=== PATIENT | male | born 2005 | race Caucasian/White ===

== ENCOUNTER 2025-06-23 08:49 | Outpatient (AMB) | payer OTHER, SELFPAY ==
--- OUTSIDE RECORDS SUMMARY | 2025-05-18 13:00 | XMS_ITS | Encounter Summary ---
Author Organization [employer] Address [address] [place] [address] Care Team Providers Care Gamma Operator Name Role Phone Pavithra Álvarez MD Primary Care Provide r Encounter Details Date Type Department Care Team ([facility] st Contact Info) Description 05/18/2025 2:00 PM EDT Office Visit [facility] MED[facility]INE [address] [place], [place] [phone] Pavithra Álvarez MD [address] [place] [address] Class 1 obesity due to excess calories with serious comorbidity and body mass index (BMI) of 30.0 to 30.9 in adult (Primary Dx); Nonintractable epilepsy without status epilepticus, unspecified epilepsy type (CMS/HCC) (HCC); Encounter for immunization; Dietary counseling; Exercise counseling Social History Tobacco Use Types Packs/Day Years Used Date Smoking Tobacco: Never Smokeless Tobacco: Never Alcohol Use Standard Drinks/Week Comments Yes 0 (1 standard drink = 0.6 oz pur e alcohol) rare Depression Answer Date Recorded Patient Health Questionnaire-9 Score 0 06/18/2025 Patient Health Questionnaire-9 Score 0 06/18/2025 Last PHQ-9: Questionnaire Data Not on file 1 08/18/2024 Housing Stability Answer Date Recorded What is your housing situation today? I have william fulton 05/08/[address] you li ve. Do you have problems with any of the following? None of the above 05/08/2025 Food Insecurity Answer Date Recorded Within the past 12 months, y ou worried that your food would run out before you got money to buy more: Never True 05/08/2025 Within the past 12 months,th e food you bought just didn't last and you didn't have enough money to get more: Never True Transportation Answer Date Recorded In the past 12 months, has l ack of transportation kept you from medical appts, meetings, work or from getting things needed for daily living? No 05/08/2025 Utilities Answer Date Recorded In the past 12 months, has t he electric, gas, oil or water company threatened to shut off services in your home? No 05/08/2025 Depression Answer Date Recorded Patient Health Questionnaire-2 Score 0 06/18/2025 Internet Access Answer Date Recorded Internet Access Q1 Yes 05/08/2025 Internet Access Q2 Not on file 05/08/2025 Sex and Gender Information Value Date Recorded Sex Assigned at Male 02/06/2025 10:23 AM EDT Legal Sex Male 10:21 AM EDT Gender Identity Male 02/06/2025 10:23 AM EDT Sexual Orientation Straight 03/13/2025 12 :47 PM EDT documented as of this encounter Last Filed Vital Signs Vital Sign Reading Time Taken Comments Blood Pressure 122/88 05/18/2025 2:08 PM EDT Pulse 52 05/18/2025 2:08 PM EDT Temperature 36.4 C (97.5 F) 05/18/2025 2:08 PM EDT Respiratory Rate 16 05/18/2025 2:08 PM EDT Oxygen Saturation 98% 05/18/2025 2:08 PM EDT Inhaled Oxygen Concentration - - Weight 95.3 kg (210 lb) 05/18/2025 2:08 PM EDT Height 177.8 cm (5' 10 ) 05/18/2025 2:08 PM EDT Body Mass Index 30.13 05/18/2025 2:08 PM EDT documented in this encounter Functional Status * Over the past 2 weeks, how often have you been bothered by any of the following problems? Question Answer Date of Assessment Author Patient Health Questionnaire-2 Score 0 01/2025 3:06 PM Jannette Minor [place] * Little interest or pleasure in doing things Answer Date of Assessment Author Not at all 06/18/2025 3:06 PM Huy Minor ra, [place] * Feeling down, depressed, or hopeless Answer Date of Assessment Author Not at all 06/18/2025 3:06 PM Huy Minor ra, [place] * Trouble falling or staying asleep, or sleeping too much Answer Date of Assessment Author Not at all 06/18/2025 3:06 PM Huy Minor ra, [place] * Feeling tired or having little energy Answer Date of Assessment Author Not at all 06/18/2025 3:06 PM Huy Minor ra, [place] * Poor appetite or overeating Answer Date of Assessment Author Not at all 06/18/2025 3:06 PM Edis Minor [place] * Feeling bad about yourself - or that you are a failure or have let yourself or your family down Answer Date of Assessment Author Not at all 06/18/2025 3:06 PM Huy Minor ra, [place] * Trouble concentrating on things, such as reading the newspaper or watching television Answer Date of Assessment Author Not at all 06/18/2025 3:06 PM Huy Minor ra, [place] * Moving or speaking so slowly that other people could have noticed? Or the opposite - being so fidgety or restless that you have been moving around a lot more than usual. Answer Date of Assessment Author Not at all 06/18/2025 3:06 PM Huy Minor ra, [place] * Thoughts that you would be better off or hurting yourself in some way Answer Date of Assessment Author Not at all 06/18/2025 3:06 PM Huy Minor ra, [place] * Patient Health Questionnaire-9 Score Answer Date of Assessment Author 0 06/18/2025 3:06 PM Huy Minor ra, [place] * Over the last 2 weeks, how often have you been bothered by any of the following problems? Question Answer Date of Assessment Author Feeling nervous, anxious, or on edge 0 01/2025 3:05 PM Jannette Minor MA Not being able to stop or co ntrol worrying 0 06/18/2025 3:05 PM Jannette Minor MA Worrying too much about diff erent things 0 06/18/2025 3:05 PM Jannette Minor MA Trouble relaxing 0 06/18/2025 3:05 PM Jannette Shaffer [place] Being so restless that it is hard to sit still 0 06/18/2025 3:05 PM Jannette Minor MA Becoming easily annoyed or irritable 0 01/2025 3:05 PM Jannette Minor MA Feeling afraid as if somethi ng awful might happen 0 06/18/2025 3:05 PM Jannette Minor MA CHADD-7 Total Score 0 06/18/2025 3:05 PM Jannette Minor MA documented as of this encounter Progress Notes * Pavithra Kinney MD - 05/18/2025 2:00 PM EDT SUBJECTIVE: Herrera Ramírez is a 19 y.o. year old male who presents for new patient . 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) Lives with:mother and sister - EtOH once a month always ;ess than 3 drinks - smoking cigarettes denies - recreational drug use smokes marijuana once a month Diet:regular Exercise: plays basketball almost every day Surgeries/Hospitalizations:left ankle surgery 2018 PMHx:epilepsy (patient has a neurologist he sees them at [facility]) FMHx:none Immunizations: Flu shot today Acute Concerns: None Social History Social History Narrative Not on file Problem List[1] Nonintractable epilepsy without status epilepticus (CMS/HCC) (HCC) Class 1 obesity due to excess calories with serious comorbidity and body mass index (BMI) of 30.0 to 30.9 in adult Family History[2] Review of Systems Constitutional: Negative. HENT: Negative. Respiratory: Negative. Cardiovascular: Negative. OBJECTIVE: Vitals: 05/18/25 1408 BP: 122/88 BP Location: Left arm Patient Position: Sitting BP Cuff Size: Adult Pulse: 52 Resp: 16 Temp: 97.5 ??F (36.4 ??C) TempSrc: Temporal SpO2: 98% Weight: 210 lb (95.3 kg) Height: 5' 10 (1.778 m) Physical Exam Constitutional: Appearance: Normal appearance. Cardiovascular: Rate and Rhythm: Normal rate and regular rhythm. Pulmonary: Effort: Pulmonary effort is normal. Breath sounds: Normal breath sounds. Abdominal: General: Abdomen is flat. Palpations: Abdomen is soft. Musculoskeletal: Right lower leg: No edema. Left lower leg: No edema. Neurological: Mental Status: He is alert. Follow Up: No follow-ups on file. Medications Ordered Prior to Encounter[3] Problem List Items Addressed This Visit Nonintractable epilepsy without status epilepticus (CMS/HCC) (HCC) Last cystoscopy was in 2022 we will continue with same Keppra dose and I advised also to follow-up with neurology Relevant Medications levETIRAcetam (Keppra) 1000 MG tablet Other Relevant Orders Hepatic Function Panel Class 1 obesity due to excess calories with serious comorbidity and body mass index (BMI) of 30.0 to 30.9 in adult - Primary Extensive counseling about healthy diet and exercise done today Blood work ordered today patient will be contacted with results Relevant Orders Hemoglobin A1c Lipid Panel, Standard Vitamin D, 25-Hydroxy, Total, Immunoassay TSH with Reflex to Free T4 Other Visit Diagnoses Encounter for immunization Relevant Orders FLU VACCINE TRIVALENT [id number] (Fluarix) 19 yrs + (Completed) Dietary counseling Exercise counseling [1] Patient Active Problem List Diagnosis Nonintractable epilepsy without status epilepticus (CMS/HCC) (HCC) Class 1 obesity due to excess calories with serious comorbidity and body mass index (BMI) of 30.0 to 30.9 in adult [2] No family history on file. [3] Current Outpatient Medications on File Prior to Visit Medication Sig Dispense Refill [DISCONTINUED] levETIRAcetam (Keppra) 1000 MG tablet Take 2 tablets (2,000 mg) by mouth 2 times daily. 120 tablet 2 No current facility-administered medications on file prior to visit. documented in this encounter Miscellaneous Notes * Assessment & Plan Note - Pavithra Kinney MD - 05/18/2025 4:23 PM EDT Associated Problem(s): Class 1 obesity due to excess calories with serious comorbidity and body mass index (BMI) of 30.0 to 30.9 in adult Extensive counseling about healthy diet and exercise done today Blood work ordered today patient will be contacted with results * Assessment & Plan Note - Pavithra Kinney MD - 05/18/2025 4:23 PM EDT Associated Problem(s): Nonintractable epilepsy without status epilepticus (CMS/HCC) (HCC) Last seizurevwas in 2022 we will continue with same Keppra dose and I advised also to follow-up with neurology documented in this encounter Plan of Treatment Not on file documented as of this encounter Procedures Procedure Name Priority Date/Time Associated Diagnosis Comments VITAMIN D,25-OH,TOTAL,IA Routine 05/18/2025 3:02 PM EDT Class 1 obesity due to excess calories with serious comorbidity and body mass index (BMI) of 30.0 to 30.9 in adult TSH W/REFLEX TO FT4 Routine 05/18/2025 3 :02 PM EDT Class 1 obesity due to excess calories with serious comorbidity and body mass index (BMI) of 30.0 to 30.9 in adult HEMOGLOBIN A1C Routine 05/18/2025 3:02 PM EDT Class 1 obesity due to excess calories with serious comorbidity and body mass index (BMI) of 30.0 to 30.9 in adult HEPATIC FUNCTION PANEL Routine 05/18/2025 3:02 PM EDT Nonintractable epilepsy without status epilepticus, unspecified epilepsy type (CMS/HCC) (HCC) LIPID PANEL, STANDARD Routine 05/18/2025 3:02 PM EDT Class 1 obesity due to excess calories with serious comorbidity and body mass index (BMI) of 30.0 to 30.9 in adult documented in this encounter Results * TSH with Reflex to Free T4 (05/18/2025 3:02 PM EDT) TSH reflex Free T4 1.71 0.32 - 4.0 uIU/mL [facility] Blood Venous blood specimen / Unknown 05/18/2025 3:02 PM EDT 05/18/2025 4:03 PM EDT us Pavithra Kinney MD LAB BLOOD ORDERABLES Final Result Performing Organization Address City/[facility]/ZIP Co de Phone Number [facility] [address] [place] [phone] [phone] * Vitamin D, 25-Hydroxy, Total, Immunoassay (05/18/2025 3:02 PM EDT) Vitamin D 25-OH Total 58.0 >30 ng/mL [facility] Comment: Health Based Reference Values*< 20 ng/mL Oyspkdedh50-57 ng/mL Insufficient> 30 ng/mL Sufficient*Shell AMATO. N Engl J Med. 2007;357:266-280There is no well-established upper level of normal vitamin Dlevels. Some laboratories use 50 ng/mL as an upper limit ofnormal. However, toxicity is patient-dependent and may occurat any level. Careful correlation with the patient'spresentation is necessary and, if there is concern forvitamin D toxicity, treatment should be consideredirrespective of the serum level.Care must be taken in interpreting Vitamin D results fromdifferent laboratories and methodologies. Published datademonstrated that results from patients undergoinghemodialysis may show a negative bias when tested withvarious automated 25-OH vitamin D assays when compared toLC-MS/MS.When testing samples from patients whose predominant form ofVitamin D is Vitamin D2, such as patients receiving VitaminD2 supplementation, results that are subtherapeutic shouldbe confirmed with another method such as LC-MS/MS. Blood Venous blood specimen / Unknown 05/18/2025 3:02 PM EDT 05/18/2025 4:03 PM EDT Pavithra Kinney MD LAB BLOOD ORDERABLES Final Result [facility] [address] [place] [phone] * (ABNORMAL) Lipid Panel, Standard (05/18/2025 3:02 PM EDT) Triglycerides 87 <150 mg/dL [facility] Comment:Desirable Triglyceri de: less than 150 mg/dLBorderline High Triglyceride 150-199 mg/dLHigh Triglyceride: 200-499 mg/dLVery High Triglyceride: greater than or equal to 5OO mg/dL Cholesterol 114 <200 mg/dL [facility] Comment:Desirable Cholestero l: less than 200 mg/dLBorderline High Cholesterol: 200-239 mg/dLHigh Cholesterol: greater than 239 mg/dL LDL Cholesterol Calculated 64 <100 mg/dL [facility] Comment:Desirable LDL: less than 100 mg/dLNear Optimal/Above Optimal LDL: 110- 129 mg/dLBorderline High LDL: 130-159 mg/dLHigh LDL: 160-189 mg/dLVery High LDL: greater than or equal to 190 mg/dL HDL Cholesterol 33(L) >40 mg/dL [facility] Comment:Desirable HDL: great er than 40 mg/dL Note: This HDL assay may give artificially low results in patients with liver disease. Blood Venous blood specimen / Unknown 05/18/2025 3:02 PM EDT 05/18/2025 4:03 PM EDT Pavithra Kinney MD LAB BLOOD ORDERABLES Final Result [facility] [address] [place] [address] [phone] * Hemoglobin A1c (05/18/2025 3:02 PM EDT) Hemoglobin A1c 5.1 <6.0 % [facility] Comment:Hemoglobin A1C Refer ence Range Adults: 4.8 - 6.0 % Non diabetic: < 6.0 % Goal: < 7.0 %Additional Action Suggested: > 8.0 %Note: Hemoglobin A1c results are invalid for patients with abnormal amounts of HbF. Blood transfusions may impact the HbA1c concentration in the patient sample. Estimated Average Glucose 100 mg/dL [facility] Comment:eAG = Estimated ave rage glucose which is %A1C expressed asaverage glucose, using the formula of the [id number]-[id number] Glucose study (ADAG), Diabetes Care, Vol.31,#8,Mar. 2007 Blood Venous blood specimen / Unknown 05/18/2025 3:02 PM EDT 05/18/2025 4:00 PM EDT us Pavithra Kinney MD LAB BLOOD ORDERABLES Final Result Performing Organization Address [facility]/ZIP Co de Phone Number [facility] [address] [place] [phone] * (ABNORMAL) Hepatic Function Panel (05/18/2025 3:02 PM EDT) Bilirubin, Total 1.1(H) 0.0 - 1.0 mg/dL [facility] Bilirubin, Direct 0.4 0.0 - 0.5 mg/dL [facility] Aspartate Amino Transferase 33 5 - 37 U/L [facility] Alanine Aminotransferase 22 0 - 40 U/L [facility] Total Protein 7.5 6.5 - 8.0 g/dL [facility] Albumin Level 5.2(H) 3.5 - 5.0 g/dL [facility] Alkaline Phosphatase 70 39 - 117 U/L [facility] Blood Venous blood specimen / Unknown 05/18/2025 3:02 PM EDT 05/18/2025 4:03 PM EDT us Pavithra Kinney MD LAB BLOOD ORDERABLES Final Result Performing Organization Address [facility]/ZIP Co de Phone Number [facility] [address] [place] [phone] documented in this encounter Visit Diagnoses Diagnosis Class 1 obesity due to excess calories with serious comorbidity and body mass index (BMI) of 30.0 to 30.9 in adult- Primary Nonintractable epilepsy without status epilepticus, unspecified epilepsy type (CMS/HCC) (HCC) Encounter for immunization Dietary counseling Dietary surveillance and counseling Exercise counseling documented in this encounter Care Teams Gamma Operator Relationship Specialty Start Date End Date Pavithra Álvarez MD [address] [place] [phone] PCP - General Internal Medicine 05/18/25 documented as of this encounter
--- OUTSIDE RECORDS SUMMARY | 2025-06-18 15:15 | XMS_ITS | Encounter Summary ---
Author Organization [email or web address] Address [address] [place] [address] Care Team Providers Care Shell Sieve Operator Name Role Phone Pavithra Álvarez MD Primary Care Provide r Encounter Details Date Type Department Care Team (Late st Contact Info) Description 06/18/2025 3:15 PM EST Telemedicine [facility] MEDICINE [address] [place], [place] [phone] Pavithra Álvarez MD [address] [place] [address] Low HDL (under 40) (Primary Dx); Class 1 obesity due to excess calories with serious comorbidity and body mass index (BMI) of 30.0 to 30.9 in adult; Nonintractable epilepsy without status epilepticus, unspecified epilepsy type (CMS/HCC) (HCC) Social History Tobacco Use Types Packs/Day Years [...] PM EDT documented as of this encounter Functional Status * Over the [...] PM Huy Minor ra, [place] * Feeling bad about yourself - [...] Progress Notes * Pavithra Kinney MD - 06/18/2025 3:15 PM EST SUBJECTIVE: Herrera Ramírez is a 19 y.o. year old male who presents for Follow up . Today I reviewed blood work with patient and let him know it looks normal with exception of lipid panel he has mild decrease HDL Also was noticed he is not vaccinated against hepatitis B, vaccine was offered to him Patient tells me he is taking his Keppra as prescribed he has not had any seizure episodes Social History Social History Narrative Not on file Problem List[1] Nonintractable epilepsy without status epilepticus (CMS/HCC) (HCC) Class 1 obesity due to excess calories with serious comorbidity and body mass index (BMI) of 30.0 to 30.9 in adult Family History[2] Review of Systems Constitutional: Negative. HENT: Negative. Respiratory: Negative. Cardiovascular: Negative. Neurological: Negative. Follow Up: No follow-ups on file. Medications Ordered Prior to Encounter[3] Problem List Items Addressed This Visit Low HDL (under 40) - Primary Extensive counseling about healthy diet and exercise on today Class 1 obesity due to excess calories with serious comorbidity and body mass index (BMI) of 30.0 to 30.9 in adult Extensive counseling about healthy diet and exercise done today Nonintractable epilepsy without status epilepticus (CMS/HCC) (HCC) Continue with Keppra 1000 mg twice daily Patient was his neurology appointment I will print information and mail to him so he can reschedulehis appointment [1] Patient Active Problem List Diagnosis Nonintractable epilepsy without status epilepticus (CMS/HCC) (HCC) Class 1 obesity due to excess calories with serious comorbidity and body mass index (BMI) of 30.0 to 30.9 in adult Low HDL (under 40) [2] No family history on file. [3] Current Outpatient Medications on File Prior to Visit Medication Sig Dispense Refill levETIRAcetam (Keppra) 1000 MG tablet TAKE 2 TABLETS BY MOUTH 2 TIMES DAILY 120 tablet 0 [DISCONTINUED] levETIRAcetam (Keppra) 1000 MG tablet Take 2 tablets (2,000 mg) by mouth 2 times daily. 120 tablet 2 No current facility-administered medications on file prior to visit. documented in this encounter Miscellaneous Notes * Assessment & Plan Note - Pavithra Kinney MD - 06/18/2025 4:12 PM EST Associated Problem(s): Nonintractable epilepsy without status epilepticus (CMS/HCC) (HCC) Continue with Keppra 1000 mg twice daily Patient was his neurology appointment I will print information and mail to him so he can reschedulehis appointment * Assessment & Plan Note - Pavithra Kinney MD - 06/18/2025 4:11 PM EST Associated Problem(s): Class 1 obesity due to excess calories with serious comorbidity and body mass index (BMI) of 30.0 to 30.9 in adult Extensive counseling about healthy diet and exercise done today * Assessment & Plan Note - Pavithra Kinney MD - 06/18/2025 4:11 PM EST Associated Problem(s): Low HDL (under 40) Extensive counseling about healthy diet and exercise on today documented in this encounter Plan of Treatment Not on file documented as of this encounter Visit Diagnoses Diagnosis Low HDL (under 40)- Primary Class 1 obesity due to excess calories with serious comorbidity and body mass index (BMI) of 30.0 to 30.9 in adult Nonintractable epilepsy without status epilepticus, unspecified epilepsy type (CMS/HCC) (HCC) documented in this encounter Additional Health Concerns Assessment Noted Time PHQ-9 Depression Total Score: 0 06/18/20 25 3:06 PM EST documented as of this encounter Care Teams Shell Sieve Operator Relationship Specialty Start Date End Date Pavithra Álvarez MD [address] [place] [phone] PCP - General Internal Medicine 05/18/25 documented as of this encounter
--- OUTSIDE RECORDS SUMMARY | 2025-06-23 09:07 | XMS_ITS | Encounter Summary ---
Author Organization [employer] Address [address] [place] [address] Care Team Providers Care Thermal Surfacing Machine Operator Name Role Phone Pavithra Álvarez MD Primary Care Provide r Reason for Visit * Reason Onset Date Comments Results 05/18/2025 Encounter Details Date Type Department Care Team ([facility] st Contact Info) Description 05/18/2025 Results Follow-Up [facility] MED[facility]INE [address] [place] [address] Ramya Coronado, ANP [address] [place] [address] Basic Metabolic Panel, HIV-1/2 Antigen and Antibodies, Fourth Generation, with Reflexes, Hepatitis C Antibody with Reflex to HCV, RNA, Quantitative, Real-Time PCR, Additional followed-up results: 4 Social History Tobacco Use Types Packs/Day Years Used Date Smoking Tobacco: Never Smokeless Tobacco: Never Alcohol Use Standard Drinks/Week Comments Yes 0 (1 standard drink = 0.6 oz pur e alcohol) rare Housing Stability Answer Date Recorded What is [...] off services in your home? No 05/08/2025 Internet Access Answer Date Recorded Internet Access Q1 Yes 05/08/2025 Internet Access Q2 Not on file 05/08/2025 Sex and Gender Information Value Date Recorded Sex Assigned at Male 02/06/2025 10:23 AM EDT Legal Sex Male 10:21 AM EDT Gender Identity Male 02/06/2025 10:23 AM EDT Sexual Orientation Straight 03/13/2025 12 :47 PM EDT documented as of this encounter Miscellaneous Notes * Telephone Encounter - Lesly Wu RN - 05/20/2025 2:15 PM EDT ----- Message from Ramya Coronado sent at 05/20/2025 2:10 PM EDT ----- Please offer hep b vaccine series, not immune on labs. STI labs normal. ----- Message ----- From: Interface, Lab Results In Sent: 05/18/2025 4:37 PM EDT To: SHERRILL Gonzalez * Result Encounter Note - SHERRILL Gonzalez - 05/20/2025 2:10 PM EDT Please offer hep b vaccine series, not immune on labs. STI labs normal. documented in this encounter Plan of Treatment Not on file documented as of this encounter Visit Diagnoses Not on filedocumented in this encounter Care Teams Thermal Surfacing Machine Operator Relationship Specialty Start Date End Date Pavithra Álvarez MD [address] [place] [phone] PCP - General Internal Medicine 05/18/25 documented as of this encounter
--- OUTSIDE RECORDS SUMMARY | 2025-06-23 09:07 | XMS_ITS | Encounter Summary ---
Author Organization [employer] Address [address] [place] [address] Care Team Providers Care Telesales Representative Name Role Phone Pavithra Álvarez MD Primary Care Provide r Encounter Details Date Type Department Care Team (Latest Contact Info) Description 06/18/2025 Travel Social History Tobacco Use Types Packs/Day Years [...] [place] Trouble relaxing 0 06/18/2025 3:05 PM EST Jannette Shields [place] Being so restless that it is hard to sit still 0 06/18/2025 3:05 PM Jannette Minor MA Becoming easily annoyed or irritable 0 01/2025 3:05 PM Jannette Minor MA Feeling afraid as if somethi ng awful might happen 0 06/18/2025 3:05 PM Jannette Minor MA CHADD-7 Total Score 0 06/18/2025 3:05 PM Jannette Minor [place] documented as of this encounter Plan of Treatment Not on file documented as of this encounter Visit Diagnoses Not on filedocumented in this encounter Additional Health Concerns Assessment Noted Time PHQ-9 Depression Total Score: 0 06/18/20 3:06 PM EST documented as of this encounter Care Teams Telesales Representative Relationship Specialty Start Date End Date Pavithra Álvarez MD [address] [place] [phone] PCP - General Internal Medicine 05/18/25 documented as of this encounter
--- OUTSIDE RECORDS SUMMARY | 2025-06-23 09:07 | XMS_ITS | Clinical Summary ---
Author Organization [employer] Address [address] [place] [address] Care Team Providers Care Stamping Operator Name Role Phone Pavithra Álvarez MD Primary Care Provide r Allergies No known active allergies Medications levETIRAcetam (Keppra) 1000 MG tabletIndicatio ns:Nonintractab le epilepsy without status epilepticus, unspecified epilepsy type (CMS/HCC) (HCC) TAKE 2 TABLETS BY MOUTH 2 TIMES DAILY 120 tablet 5 Active levETIRAcetam (Keppra) 1000 MG tabletIndicatio ns:Nonintractab le epilepsy without status epilepticus, unspecified epilepsy type (CMS/HCC) (HCC) Take 2 tablets (2,000 mg) by mouth 2 times daily. 120 tablet 2 5 025 Discontinued Active Problems Problem Noted Date Diagnosed Date Low HDL (under 40) 06/18/2025 Assessment & Plan (06/18/2025 4:11 PM EST): Extensive counseling about healthy diet and exercise on today Class 1 obesity due to exces s calories with serious comorbidity and body mass index (BMI) of 30.0 to 30.9 in adult 05/18/2025 Assessment & Plan (06/18/2025 4:11 PM EST): Extensive counseling about healthy diet and exercise done today Assessment & Plan (05/18/2025 4:23 PM EDT): Extensive counseling about healthy diet and exercise done today Blood work ordered today patient will be contacted with results Nonintractable epilepsy with out status epilepticus (CMS/HCC) 03/13/2025 Assessment & Plan (06/18/2025 4:12 PM EST): Continue with Keppra 1000 mg twice daily Patient was his neurology appointment I will print information and mail to him so he can reschedule his appointment Assessment & Plan (06/18/2025 3:15 PM EST): Last seizurevwas in 2022 we will continue with same Keppra dose and I advised also to follow-up with neurology Encounters Date Type Department Care Team Description 06/18/2025 3:15 PM EST Telemedicine [facility] [address] [place] [phone] Pavithra Álvarez MD Low HDL (under 40) (Primary Dx); Class 1 obesity due to excess calories with serious comorbidity and body mass index (BMI) of 30.0 to 30.9 in adult; Nonintractable epilepsy without status epilepticus, unspecified epilepsy type (CMS/HCC) ([facility]) 06/18/2025 Travel 06/15/2025 Refill [facility] [address] [place] [phone] Ramya Coronado ANP Nonintractable epilepsy without status epilepticus, unspecified epilepsy type (CMS/HCC) ([facility]) 06/14/2025 Refill [facility] [address] [place] [phone] Ramya Coronado ANP Nonintractable epilepsy without status epilepticus, unspecified epilepsy type (CMS/HCC) ([facility]) 05/26/2025 Telephone [facility] [address] [place] [phone] Pavithra Álvarez MD No Show 05/18/2025 2:00 PM EDT Office Visit [facility] [address] [place] [phone] Pavithra Álvarez MD Class 1 obesity due to excess calories with serious comorbidity and body mass index (BMI) of 30.0 to 30.9 in adult (Primary Dx); Nonintractable epilepsy without status epilepticus, unspecified epilepsy type (CMS/HCC) (HCC); Encounter for immunization; Dietary counseling; Exercise counseling 05/18/2025 Results Follow-Up [facility] [address] [place] [phone] Ramya Coronado ANP Basic Metabolic Panel, HIV-1/2 Antigen and Antibodies, Fourth Generation, with Reflexes, Hepatitis C Antibody with Reflex to HCV, RNA, Quantitative, Real-Time PCR, Additional followed-up results: 4 05/18/2025 Travel 05/08/2025 Patient Outreach [facility] [address] [place] [address] Pavithra Álvarez MD Pre-visit Planning (SDOH screening negative and tobacco screening negative) from Last 3 Months Immunizations Immunization Administration Dates Next Due Influenza, seasonal, injectable, preservative fr ee 05/18/2025 Social History Tobacco Use Types Packs/Day Years [...] Orientation Straight 03/13/2025 12 :47 PM EDT Last Filed Vital Signs Vital Sign Reading [...] Mass Index 30.13 05/18/2025 2:08 PM EDT Plan of Treatment Health Maintenance Due Date Last Done Comments Chlamydia and Gonorrhea Screening 2003 Family Planning (PISQ) 2018 HPV Vaccines (1 - Male 3-dos e series) 2018 Meningococcal B Vaccine (1 o f 2 - Standard) 2019 DTaP/Tdap/Td Vaccines (1 - Tdap) 2022 Hepatitis B Vaccines (1 of 3 - 19+ 3-dose series) 2022 COVID-19 Vaccine (1 - 2023-2 5 season) 2025 SDOH Screening 05/08/2026 05/08/2025 Tobacco Screening 05/18/2026 05/18/2025 Alcohol/Substance Use Screening 06/18/2026 06/18/2025 Depression Screening 06/18/2026 06/18/2025, 06/18/2025 Disability Screening 06/18/2026 06/18/2025 Lipid Panel 05/18/2030 05/18/2025 Zoster Vaccines (1 of 2) 2053 RSV Patients and Patients Aged 60 years or older (1 - 1-dose 75+ series) 2078 HIV Screening Completed 05/18/2025 Hepatitis C Screening Completed 05/18/2025 Influenza Vaccine Completed 05/18/2025 HIB Vaccines Aged Out No longer eligi ble based on patient's age to complete this topic Hepatitis A Vaccines Aged Out No long er eligible based on patient's age to complete this topic IPV Vaccines Aged Out No longer eligi ble based on patient's age to complete this topic Meningococcal Vaccine Aged Out No chris les eligible based on patient's age to complete this topic Pneumococcal Vaccine: Pediatrics (0 to 5 Years) and At-Risk Patients (6 to 49) Years Aged Out No longer eligible b ased on patient's age to complete this topic RSV under 20 months Aged Out No longe r eligible based on patient's age to complete this topic Rotavirus Vaccines Aged Out No longer eligible based on patient's age to complete this topic Procedures Procedure Name Priority Date/Time Associated Diagnosis Comments TSH W/REFLEX TO FT4 Routine 05/18/2025 3 :02 PM EDT Class 1 obesity due to excess calories with serious comorbidity and body mass index (BMI) of 30.0 to 30.9 in adult VITAMIN D,25-OH,TOTAL,IA Routine 05/18/2025 3:02 PM EDT Class 1 obesity due to excess calories with serious comorbidity and body mass index (BMI) of 30.0 to 30.9 in adult LIPID PANEL, STANDARD Routine 05/18/2025 3:02 PM [...] status epilepticus, unspecified epilepsy type (CMS/HCC) (HCC) BASIC METABOLIC PANEL Routine 05/18/2025 3:02 PM EDT Nonintractable epilepsy without status epilepticus, unspecified epilepsy type (CMS/HCC) (HCC) SYPHILIS SCREEN Routine 05/18/2025 3:02 PM EDT Routine screening for STI (sexually transmitted infection) HEPATITIS B SURFACE ANTIGEN, EIA Routine 05/18/2025 3:02 PM EDT Need for hepatitis B screening test HEPATITIS B SURFACE ANTIBODY, QUALITATIVE Routine 05/18/2025 3:02 PM EDT Need for hepatitis B screening test HEPATITIS B CORE AB TOTAL Routine 05/18/2025 3:02 PM EDT Need for hepatitis B screening test HEPATITIS C AB W/REFL TO HCV RNA, QN, PCR Routine 05/18/2025 3:02 PM EDT Routine screening for STI (sexually transmitted infection) HIV 1/2 ANTIGEN/ANTIBODY, FOURTH GENERATION W/RFL Routine 05/18/2025 3:02 PM EDT Routine screening for STI (sexually transmitted infection) from Last 3 Months Results * Syphilis Screen (05/18/2025 3:02 PM EDT) Syphilis Screen Nonreactive Nonreactive [facility] Blood Venous blood specimen / Unknown 05/18/2025 3:02 PM EDT 05/18/2025 4:03 PM EDT us [facility] LAB BLOOD ORDERABLES Final Resul t [facility] [address] [place] [phone] * Vitamin D, 25-Hydroxy, Total, Immunoassay (05/18/2025 3:02 PM EDT) Vitamin D 25-OH Total 58.0 >30 ng/mL [facility] Comment: Health Based Reference Values*< 20 ng/mL [place]65-84 ng/mL Insufficient> 30 ng/mL Sufficient*Shell AMATO. N [...] BLOOD ORDERABLES Final Result Performing Organization Address [facility]/ZIP Co de Phone Number [facility] [address] [place] [phone] * TSH with Reflex to Free T4 (05/18/2025 3:02 PM EDT) TSH reflex Free T4 1.71 0.32 - 4.0 uIU/mL [facility] Blood Venous blood specimen / Unknown 05/18/2025 3:02 PM EDT 05/18/2025 4:03 PM EDT us Pavithra Kinney MD LAB BLOOD ORDERABLES Final Result Performing Organization Address [facility]/ZIP Co de Phone Number [facility] [address] [place] [phone] * Hepatitis C Antibody with Reflex to HCV, RNA, Quantitative, Real-Time PCR (05/18/2025 3:02 PM EDT) Hepatitis C Antibody Nonreactive Nonreactive [facility] Comment:Antibodies to HCV no t detected; does not exclude early acuteHCV infection. Blood Venous blood specimen / Unknown 05/18/2025 3:02 PM EDT 05/18/2025 4:03 PM EDT Ramya Coronado [facility] LAB BLOOD ORDERABLES Final Resul t Performing Organization Address [facility] Co de Phone Number [facility] [address] [place] [phone] * Hepatitis B surface antigen, EIA (05/18/2025 3:02 PM EDT) Hepatitis B Surface Ag Negative Negative [facility] Blood Venous blood specimen / Unknown 05/18/2025 3:02 PM EDT 05/18/2025 4:03 PM EDT Ramya Coronado [facility] LAB BLOOD ORDERABLES Final Resul t Performing Organization Address [facility] de Phone Number [facility] [address] [place] [phone] * Hepatitis B Core Antibody, Total (05/18/2025 3:02 PM EDT) Hepatitis B Core Antibody Nonreactive Nonreactive [facility] Blood Venous blood specimen / Unknown 05/18/2025 3:02 PM EDT 05/18/2025 4:03 PM EDT Ramya Coronado [facility] LAB BLOOD ORDERABLES Final Resul t Performing Organization Address [facility] Phone Number [facility] [address] [place] [phone] * HIV-1/2 Antigen and Antibodies, Fourth Generation, with Reflexes (05/18/2025 3:02 PM EDT) Pathologist [facility] HIV AB/AG Nonreactive Nonreactive [facility] Comment:HIV-1 p24 Ag and/or HIV-1/HIV-2 Ab not detected.A test result that is nonreactive does not exclude thepossibility of exposure to or infection with HIV-1 and/orHIV-2. Nonreactive results in this assay for individualswith prior exposure to HIV-1 and/or HIV-2 may be due toantigen and antibody levels that are below the limit ofdetection of this assay.[employer] HIV Ag/Ab Combo assay result andsupplemental assay results should be interpreted inconjunction with the patient's clinical presentation,history and other laboratory results. If the results areinconsistent with clinical evidence, additional testing issuggested to confirm the result. Blood Venous blood specimen / Unknown 05/18/2025 3:02 PM EDT 05/18/2025 4:03 PM EDT Ramya Coronado [facility] LAB BLOOD ORDERABLES Final Resul t Performing Organization Address [facility] Co de Phone Number [facility] [address] [place] [phone] * Hepatitis B Surface Antibody, Qualitative (05/18/2025 3:02 PM EDT) Pathologist [facility] ~Hepatitis B Surface Antibody NONREACTIVE Nonreactive [facility] Comment:Nonreactive: < 8.00 mIU/mL Blood Venous blood specimen / Unknown 05/18/2025 3:02 PM EDT 05/18/2025 4:03 PM EDT Ramya Coronado [facility] LAB BLOOD ORDERABLES Final Resul t Performing Organization Address [facility] Co de Phone Number [facility] [address] [place] [phone] * Hemoglobin A1c (05/18/2025 3:02 PM EDT) Pathologist [facility] Hemoglobin A1c 5.1 <6.0 % [facility] Comment:Hemoglobin A1C Refer ence Range Adults: 4.8 - 6.0 % Non diabetic: < 6.0 % Goal: < 7.0 %Additional Action Suggested: > 8.0 %Note: Hemoglobin A1c results are invalid for patients with abnormal amounts of HbF. Blood transfusions may impact the HbA1c concentration in the patient sample. Estimated Average Glucose 100 mg/dL [facility] Comment:eAG = Estimated ave rage glucose which is %A1C expressed asaverage glucose, using the formula of the [id number] Glucose study (ADAG), Diabetes Care, Vol.31,#8,Mar. 2007 Blood Venous blood specimen / Unknown 05/18/2025 3:02 PM EDT 05/18/2025 4:00 PM EDT us Pavithra Kinney MD LAB BLOOD ORDERABLES Final Result Performing Organization Address [facility]/ZIP Co de Phone Number [facility] [address] [place] [phone] * (ABNORMAL) Hepatic Function Panel (05/18/2025 3:02 PM EDT) Bilirubin, Total 1.1(H) 0.0 - 1.0 mg/dL [facility] Bilirubin, Direct 0.4 0.0 - 0.5 mg/dL [facility] Aspartate Amino Transferase 33 5 - 37 U/L [facility] Alanine Aminotransferase 22 0 - 40 U/L [facility] Total Protein 7.5 6.5 - 8.0 g/dL [facility] Albumin Level 5.2(H) 3.5 - 5.0 g/dL [facility] Alkaline Phosphatase 70 39 - 117 U/L [facility] Blood Venous blood specimen / Unknown 05/18/2025 3:02 PM EDT 05/18/2025 4:03 PM EDT us Pavithra Kinney MD LAB BLOOD ORDERABLES Final Result Performing Organization Address [facility] Co de Phone Number [facility] [address] [place] [phone] * (ABNORMAL) Lipid Panel, Standard (05/18/2025 3:02 PM EDT) Triglycerides 87 <150 mg/dL [facility] Comment:Desirable Triglyceri de: less than 150 mg/dLBorderline High Triglyceride 150-199 mg/dLHigh Triglyceride: 200-499 mg/dLVery High Triglyceride: greater than or equal to 5OO mg/dL Cholesterol 114 <200 mg/dL [facility] Comment:Desirable Cholestero l: less than 200 mg/dLBorderline High Cholesterol: 200-239 mg/dLHigh Cholesterol: greater than 239 mg/dL LDL Cholesterol Calculated 64 <100 mg/dL [facility] Comment:Desirable LDL: less than 100 mg/dLNear Optimal/Above Optimal LDL: 110- 129 mg/dLBorderline High LDL: 130-159 mg/dLHigh LDL: 160-189 mg/dLVery High LDL: greater than or equal to 190 mg/dL HDL Cholesterol 33(L) >40 mg/dL [facility] Comment:Desirable HDL: great er than 40 mg/dL Note: This HDL assay may give artificially low results in patients with liver disease. Blood Venous blood specimen / Unknown 05/18/2025 3:02 PM EDT 05/18/2025 4:03 PM EDT us Pavithra Kinney MD LAB BLOOD ORDERABLES Final Result [facility] [address] [place] [phone] * (ABNORMAL) Basic Metabolic Panel (05/18/2025 3:02 PM EDT) Pathologist [facility] Sodium 140 135 - 145 mmol/L [facility] Potassium 4.0 3.3 - 5.1 mmol/L [facility] Chloride 105 96 - 108 mmol/L [facility] Carbon Dioxide 28 22 - 29 mmol/L [facility] Anion Gap 11(L) 12 - 20 [facility] Urea Nitrogen (BUN) 15 9 - 16 mg/dL [facility] Creatinine, Serum 1.06 0.5 - 1.4 mg/dL [facility] Estimated Glomerular Filt Rate >60 [facility] Comment:Chronic Kidney Disea se: Estimated GFR < 60 mL/min/[id number] Kidney Disease: Estimated GFR < 15 mL/min/1.73m2 Glucose 95 60 - 115 mg/dL [facility] Calcium 9.6 8.4 - 10.2 mg/dL [facility] Blood Venous blood specimen / Unknown 05/18/2025 3:02 PM EDT 05/18/2025 4:03 PM EDT Ramya Coronado [facility] LAB BLOOD ORDERABLES Final Resul t [facility] [address] [place] [phone] from Last 3 Mon[address] Insurance [facility] 2 Care Teams Stamping Operator Relationship Specialty Start Date End Date Pavithra Álvarez MD [address] [place] [phone] PCP - General Internal Medicine 05/18/25
--- OUTSIDE RECORDS SUMMARY | 2025-06-23 09:07 | XMS_ITS | Encounter Summary ---
Author Organization [employer] Address [address] [place] [address] Care Team Providers Care Operating Room Rn Name Role Phone Pavithra Álvarez MD Primary Care Provide r Reason for Visit * Reason Comments Med Refill Encounter Details Date Type Department Care Team ([facility] st Contact Info) Description 06/14/2025 Refill [facility] [address] [place], [place] [phone] Ramya Coronado, ANP [address] [place] [address] Nonintractable epilepsy without status epilepticus, unspecified epilepsy [...] PM EDT documented as of this encounter Plan of Treatment Not on file documented as of this encounter Visit Diagnoses Diagnosis Nonintractable epilepsy without status epilepticus, unspecified epilepsy type (CMS/HCC) (HCC) documented in this encounter Care Teams Operating Room Rn Relationship Specialty Start Date End Date Pavithra Álvarez MD [address] [place] [phone] PCP - General Internal Medicine 05/18/25 documented as of this encounter
--- NOTE | 2025-06-23 09:18 | A.OFFVIS_ITS ---
Intake Visit Reasons: Nonintractable epilepsy Allergies No Known Allergies Allergy (Verified 06/18/25 11:13) Medication List - Last Reconciled 06/23/25 by Carla Ramos MD levetiracetam 1,000 mg PO BID HPI Comments Details: This is a 19-year-old right-handed man with a history of epilepsy since childhood. He needs entire life he has had 4 or 5 generalized tonic-clonic seizure and no partial seizures. His last seizure was in 2022 after missing his medications. In the past the seizures may have been brought on by sleep deprivation. He gets no aura and passes out suddenly and goes into a generalized convulsion. He may have tongue biting but usually no incontinence. There is no family history of epilepsy. There is no history of head trauma. He may have had an MRI in the past in [place] but has no record of it. He does not remember having an EEG. 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 He gets 6-7 hours of sleep a night. He says that he does not drink or abuse alcohol [facility] Medical History (Updated 06/23/25 @ 09:24 by Carla Ramos MD) Epilepsy Review of Systems Narrative ?Sleep Difficulty getting to sleep??denies.??Difficulty maintaining sleep??denies?.?? Urge to move legs??denies.??Teeth grinding??denies.??Shouting or Kicking during sleep??denies.??Abnormal behavior during sleep??denies.??Excessive sleep??denies.??Snoring??denies.??Daytime sleepiness??denies.? General/Constitutional Change in appetite??denies.??Chills??denies.??Fatigue??denies.??Fever??denies.?? Weight gain??denies.??Weight loss??denies.? Ophthalmologic Blurred vision??denies.??Diminished visual acuity??denies.? ENT Stuffiness??denies.??Decreased hearing??denies.??Dry mouth??denies.??Ear pain??denies.??Nosebleed??denies.??Ringing in the ears??denies.??Sinus pain ??denies.??Sore throat??denies.??Swollen glands??denies.? Endocrine Cold intolerance??denies.??Excessive thirst??denies.??Frequent urination ??denies.??Heat intolerance??denies.? Respiratory Shortness of breath??denies.??Chest pain??denies.??Cough??denies.? Breast Breast lump??denies.??Nipple discharge??denies.? Cardiovascular Chest pain at rest??denies.??Chest pain with exertion??denies.??Claudication ??denies.??Fluid accumulation in the legs??denies.??Irregular heartbeat ??denies.??Palpitations??denies.? Gastrointestinal Abdominal pain??denies.??Constipation??denies.??Diarrhea??denies.??Heartburn ??denies.??Nausea??denies.??Rectal bleeding??denies.? Hematology Easy bruising??denies.??Prolonged bleeding??denies.? Genitourinary Frequent urination??denies.??Urgency??denies.??Incontinence??denies.??Erectile Dysfunction??denies.? Musculoskeletal Neck pain??denies.??Back pain??denies.??Muscle aches??denies.??Painful joints??denies.? Neurologic Difficulty swallowing??denies.??Balance difficulty??denies.??Coordination ??normal.??Difficulty speaking??denies.??Dizziness??denies.??Fainting ??denies.??Gait abnormality??denies.??Headache??denies.??Loss of strength ??denies.??Loss of use of extremity??denies.??Memory loss??denies.??Seizures ??denies.??Tics??denies.??Tingling/Numbness??denies.??Transient loss of vision ??denies.??Tremor??denies.? Psychiatric Anxiety??denies.??Auditory/visual hallucinations??denies.??Delusions ??denies.??Depressed mood??denies.??Stressors??denies.??Substance abuse ??denies.??Suicidal thoughts??denies.? Neuro Reports convulsions Physical Exam Neuro Other: ?Mini Mental Status Exam Level of Consciousness:?Alert.? Orientation:?Knows correct year, month, date, day and season.?Knows correct city, county and state. Knows correct location and floor.? Registration:?Able to register 3 objects.? Attention:?Serial 7's performed accurately.? Recall:?Able to recall 3 out of 3 objects.? Language:?Normal spontaneous speech, fluency, repetition, naming, comprehension, reading, and writing.? Total Score:?30/30.? Neurological Abnormal neurological findings:??none.? Mental Status:?Alert and oriented X 3.?Normal attention, orientation, memory, and affect.? Cranial Nerves:?Pupils are equal, round and reactive to light. Fundoscopy shows normal disc bilaterally. External occular muscles are intact. Visual tanner are full, no ptosis. Face is symmetrical, no facial weakness or droop. Facial sensations are normal. Tongue protrudes in midline. Palate elevates symmetrically. Shoulder shrugging is normal.? Motor Examination:?Normal muscle tone, bulk and strength.?No atrophy or fasciculations.?No drift of the extended upper extremities.?Deep tendon reflexes are 2+.?Plantars are flexor.? Motor Strength:? Proximal Muscles (out of 5):?5 Distal Muscles (out of 5):?5 Neck Flexors (out of 5):?5 Neck Extensors (out of 5):?5 Deltoid (out of 5):?5 Biceps (out of 5):?5 Triceps (out of 5):?5 Serratus Anterior (out of 5):?5 Wrist Extensors (out of 5):?5 APB (out of 5):?5 Finger Spread (out of 5):?5 Ileopsoas (out of 5):?5 Quadriceps (out of 5):?5 Hamstrings (out of 5):?5 Tibialis Anterior (out of 5):?5 Peronei (out of 5):?5 EDB (out of 5):?5 Gastrocnemius (out of 5):?5 Straight Leg Raising:?90 degrees.? Sensory Exam:?Normal light touch, temperature, pinprick, vibration and joint-position sensations.?Rhomberg sign is absent.? Coordination:?No ataxia,?no titubation,?bncqnk-gb-dvmz, barv-qjzs-imst test, and rapid alternating movements were normal.? Gait Exam:?Within normal limits.? Cerebellar Signs:?Kuuxbv-kb-hhdf and hdsb-cp-tnsa is normal.?No dysdiadochokinesia.? Extrapyramidal System:?No tremor or?rigidity, normal facial expressions.?No bradykinesia. No bradyphrenia. Normal arm swing and posture. No propulsion or retropulsion.? Speech:?Normal,?no dysphasia or dysarthria.? General Examination GENERAL APPEARANCE:??normal,?in no acute distress?,?normal,?in no acute distress.? HEAD:??normocephalic,?atraumatic.? EYES:??sclera non-icteric,?conjunctiva clear.? EARS:??auditory canal clear,?tympanic membrane intact, clear.? NOSE:??no lesions.? ORAL CAVITY:??gums normal,?mucosa moist,?no lesions.? THROAT:??clear.? NECK/THYROID:??no cervical lymphadenopathy,?thyroid normal,?neck supple, full range of motion,?no carotid bruit.? SKIN:??no rashes,?no significant birthmarks.? HEART:??S1, S2 normal,?no murmurs?,?S1, S2 normal,?no murmurs.? LUNGS:??clear anteriorly and posteriorly?,?clear anteriorly and posteriorly.? CHEST:??no gross rib deformity,?clear to auscultation.? BACK:??normal exam of spine.? MUSCULOSKELETAL:??normal.? EXTREMITIES:??no edema?,?no edema.? PERIPHERAL PULSES:??normal.? PSYCH:??alert, oriented,?cognitive function intact,?cooperative with exam?,?alert, oriented,?cognitive function intact,?cooperative with exam.? Assessment & Plan Assessment & Plan (1) Epilepsy: Code(s): G40.909 - Epilepsy, unspecified, not intractable, without status epilepticus Category: Medical Plan Continue Leveteriacetam 1gm bid; MRI brain and routine EEG Orders: Orders EEG Routine Today G40.909 - Epilepsy, unspecified, not intractable, without status epilepticus MR head/brain wo con 4 Weeks G40.909 - Epilepsy, unspecified, not intractable, without status epilepticus Coding Level of Care Code New Pt Level 5 (14738) Diagnoses Epilepsy G40.909
== END 2025-06-23 09:31 | disposition home or self-care (01) ==
LOC: HO.HSM 08:49
PROVIDERS: PCP Nurse Practitioner Primary Care; Visit Provider Psychiatry & Neurology Neurology
DX: G40.909 Epilepsy, unspecified, not intractable, without status epilepticus (principal)
CPT/HCPCS: 99204

== ENCOUNTER → 2025-06-23 08:49 | Outpatient (BNVA) | payer OTHER, SELFPAY | PROVIDERS: PCP Nurse Practitioner Primary Care; Visit Provider Psychiatry & Neurology Neurology | DX: G40.909 Epilepsy, unspecified, not intractable, without status epilepticus (principal) | CPT/HCPCS: 99202 ==

== ENCOUNTER 2025-07-29 11:41 | Outpatient (AMB) | payer OTHER, SELFPAY ==
--- NOTE | 2025-07-29 12:23 | A.OFFVIS_ITS ---
Intake Visit Reasons: Epilepsy Allergies No Known Allergies Allergy (Verified 06/18/25 11:13) Medication List - Last Reconciled 07/29/25 by Carla Ramos MD levetiracetam 1,000 mg PO BID HPI Comments Details: This is a 19-year-old right-handed man with a history of epilepsy since childhood. He says that in his entire life he has had 4 or 5 tonic-clonic seizures and no partial seizures. His last seizure was in 2022 after missing his medications. In the past, the seizures may have been brought on by sleep deprivation. He gets no aura and passes out suddenly and goes into a generalized convulsion. He may have tongue biting but usually no incontinence. There is no family history of epilepsy. There is no history of head trauma. He may have had an MRI in the past in [place] but has no record of it. He does not remember having an EEG. He currently works in the [employer] system and for the [employer] and [employer]. He gets 6-7 hours of sleep a night. He says that he does not drink or abuse alcohol. No Sz recurrence. MRI and EEG are still pending. [facility] Medical History (Updated 06/23/25 @ 09:24 by Carla Ramos MD) Epilepsy Review of Systems Narrative ?Sleep Difficulty getting to sleep??denies.??Difficulty maintaining sleep??denies?.?? Urge to move legs??denies.??Teeth grinding??denies.??Shouting or Kicking during sleep??denies.??Abnormal behavior during sleep??denies.??Excessive sleep??denies.??Snoring??denies.??Daytime sleepiness??denies.? General/Constitutional Change in appetite??denies.??Chills??denies.??Fatigue??denies.??Fever??denies.?? Weight gain??denies.??Weight loss??denies.? Ophthalmologic Blurred vision??denies.??Diminished visual acuity??denies.? ENT Stuffiness??denies.??Decreased hearing??denies.??Dry mouth??denies.??Ear pain??denies.??Nosebleed??denies.??Ringing in the ears??denies.??Sinus pain ??denies.??Sore throat??denies.??Swollen glands??denies.? Endocrine Cold intolerance??denies.??Excessive thirst??denies.??Frequent urination ??denies.??Heat intolerance??denies.? Respiratory Shortness of breath??denies.??Chest pain??denies.??Cough??denies.? Breast Breast lump??denies.??Nipple discharge??denies.? Cardiovascular Chest pain at rest??denies.??Chest pain with exertion??denies.??Claudication ??denies.??Fluid accumulation in the legs??denies.??Irregular heartbeat ??denies.??Palpitations??denies.? Gastrointestinal Abdominal pain??denies.??Constipation??denies.??Diarrhea??denies.??Heartburn ??denies.??Nausea??denies.??Rectal bleeding??denies.? Hematology Easy bruising??denies.??Prolonged bleeding??denies.? Genitourinary Frequent urination??denies.??Urgency??denies.??Incontinence??denies.??Erectile Dysfunction??denies.? Musculoskeletal Neck pain??denies.??Back pain??denies.??Muscle aches??denies.??Painful joints??denies.? Neurologic Difficulty swallowing??denies.??Balance difficulty??denies.??Coordination ??normal.??Difficulty speaking??denies.??Dizziness??denies.??Fainting ??denies.??Gait abnormality??denies.??Headache??denies.??Loss of strength ??denies.??Loss of use of extremity??denies.??Memory loss??denies.??Seizures ??denies.??Tics??denies.??Tingling/Numbness??denies.??Transient loss of vision ??denies.??Tremor??denies.? Psychiatric Anxiety??denies.??Auditory/visual hallucinations??denies.??Delusions ??denies.??Depressed mood??denies.??Stressors??denies.??Substance abuse ??denies.??Suicidal thoughts??denies.? Neuro Reports convulsions Physical Exam Neuro Other: ?Mini Mental Status Exam Level of Consciousness:?Alert.? Orientation:?Knows correct year, month, date, day and season.?Knows correct city, county and state. Knows correct location and floor.? Registration:?Able to register 3 objects.? Attention:?Serial 7's performed accurately.? Recall:?Able to recall 3 out of 3 objects.? Language:?Normal spontaneous speech, fluency, repetition, naming, comprehension, reading, and writing.? Total Score:?30/30.? Neurological Abnormal neurological findings:??none.? Mental Status:?Alert and oriented X 3.?Normal attention, orientation, memory, and affect.? Cranial Nerves:?Pupils are equal, round and reactive to light. Fundoscopy shows normal disc bilaterally. External occular muscles are intact. Visual tanner are full, no ptosis. Face is symmetrical, no facial weakness or droop. Facial sensations are normal. Tongue protrudes in midline. Palate elevates symmetrically. Shoulder shrugging is normal.? Motor Examination:?Normal muscle tone, bulk and strength.?No atrophy or fasciculations.?No drift of the extended upper extremities.?Deep tendon reflexes are 2+.?Plantars are flexor.? Motor Strength:? Proximal Muscles (out of 5):?5 Distal Muscles (out of 5):?5 Neck Flexors (out of 5):?5 Neck Extensors (out of 5):?5 Deltoid (out of 5):?5 Biceps (out of 5):?5 Triceps (out of 5):?5 Serratus Anterior (out of 5):?5 Wrist Extensors (out of 5):?5 APB (out of 5):?5 Finger Spread (out of 5):?5 Ileopsoas (out of 5):?5 Quadriceps (out of 5):?5 Hamstrings (out of 5):?5 Tibialis Anterior (out of 5):?5 Peronei (out of 5):?5 EDB (out of 5):?5 Gastrocnemius (out of 5):?5 Straight Leg Raising:?90 degrees.? Sensory Exam:?Normal light touch, temperature, pinprick, vibration and joint-position sensations.?Rhomberg sign is absent.? Coordination:?No ataxia,?no titubation,?jesabm-wg-evmx, fhoy-sdfc-mwim test, and rapid alternating movements were normal.? Gait Exam:?Within normal limits.? Cerebellar Signs:?Wfvgtr-os-stiw and ckkf-ph-awqp is normal.?No dysdiadochokinesia.? Extrapyramidal System:?No tremor or?rigidity, normal facial expressions.?No bradykinesia. No bradyphrenia. Normal arm swing and posture. No propulsion or retropulsion.? Speech:?Normal,?no dysphasia or dysarthria.? General Examination GENERAL APPEARANCE:??normal,?in no acute distress?,?normal,?in no acute distress.? HEAD:??normocephalic,?atraumatic.? EYES:??sclera non-icteric,?conjunctiva clear.? EARS:??auditory canal clear,?tympanic membrane intact, clear.? NOSE:??no lesions.? ORAL CAVITY:??gums normal,?mucosa moist,?no lesions.? THROAT:??clear.? NECK/THYROID:??no cervical lymphadenopathy,?thyroid normal,?neck supple, full range of motion,?no carotid bruit.? SKIN:??no rashes,?no significant birthmarks.? HEART:??S1, S2 normal,?no murmurs?,?S1, S2 normal,?no murmurs.? LUNGS:??clear anteriorly and posteriorly?,?clear anteriorly and posteriorly.? CHEST:??no gross rib deformity,?clear to auscultation.? BACK:??normal exam of spine.? MUSCULOSKELETAL:??normal.? EXTREMITIES:??no edema?,?no edema.? PERIPHERAL PULSES:??normal.? PSYCH:??alert, oriented,?cognitive function intact,?cooperative with exam?,?alert, oriented,?cognitive function intact,?cooperative with exam.? Assessment & Plan Assessment & Plan (1) Epilepsy: Code(s): G40.909 - Epilepsy, unspecified, not intractable, without status epilepticus Category: Medical Plan Continue Leveteriacetam 1gm bid; MRI brain and routine EEG are still pending Medications: New levetiracetam 1,000 mg PO BID 60 tabs 6RF Coding Level of Care Code Est Pt Level 4 (31457) Diagnoses Epilepsy G40.909
--- OUTSIDE RECORDS SUMMARY | 2025-07-29 15:33 | XMS_ITS | Encounter Summary ---
Author Organization [employer] Address [address] [place] [address] Care Team Providers Care Head Teller Name Role Phone Pavithra Álvarez MD Primary Care Provide r Reason for Visit * Reason Comments Med Refill Encounter Details Date Type Department Care Team ([facility] st Contact Info) Description 06/14/2025 Refill [facility] [address] [place], [place] [id number] Ramya Coronado, ANP [address] [place] [address] Nonintractable epilepsy without status epilepticus, unspecified epilepsy [...] (HCC) documented in this encounter Care Teams Head Teller Relationship Specialty Start Date End Date Pavithra Álvarez MD [address] [place] [id number] PCP - General Internal Medicine 05/18/25 documented as of this encounter
--- OUTSIDE RECORDS SUMMARY | 2025-07-29 15:33 | XMS_ITS | Clinical Summary ---
Author Organization [employer] Address [address] [place] [address] Care Team Providers Care Occupational Therapist Assistant Name Role Phone Pavithra Álvarez MD Primary Care Provide r Allergies No known active allergies Medications levETIRAcetam (Keppra) 1000 MG tabletIndication s:Nonintractable epilepsy without status epilepticus, unspecified epilepsy type (CMS/HCC) (HCC) TAKE 2 TABLETS BY MOUTH 2 TIMES DAILY 120 tablet 06/16/2025 Active Active Problems Problem Noted Date Diagnosed Date [...] Team Description 06/18/2025 3:15 PM EST Telemedicine [facility] [address] [place] [phone] Pavithra Álvarez MD Low HDL (under 40) (Primary Dx); Class 1 obesity due to excess calories with serious comorbidity and body mass index (BMI) of 30.0 to 30.9 in adult; Nonintractable epilepsy without status epilepticus, unspecified epilepsy type (CMS/HCC) ([facility]) 06/18/2025 Travel 06/15/2025 Refill [facility] [address] [place] [phone] Ramya Coronado ANP Nonintractable epilepsy without status epilepticus, unspecified epilepsy type (CMS/HCC) ([facility]) 06/14/2025 Refill [facility] [address] [place] [phone] Ramya Coronado ANP Nonintractable epilepsy without status epilepticus, unspecified epilepsy type (CMS/HCC) ([facility]) 05/26/2025 Telephone [facility] [address] [place] [phone] Pavithra Álvarez MD No Show 05/18/2025 2:00 PM EDT Office Visit [facility] [address] [place] [phone] Pavithra Álvarez MD Class 1 obesity due to excess calories with serious comorbidity and body mass index (BMI) of 30.0 to 30.9 in adult (Primary Dx); Nonintractable epilepsy without status epilepticus, unspecified epilepsy type (CMS/HCC) ([facility]); Encounter for immunization; Dietary counseling; Exercise counseling 05/18/2025 Results Follow-Up [address] [phone] Ramya Coronado ANP Basic Metabolic Panel, HIV-1/2 Antigen and Antibodies, Fourth Generation, with Reflexes, Hepatitis C Antibody with Reflex to HCV, RNA, Quantitative, Real-Time PCR, Additional followed-up results: 4 05/18/2025 Travel 05/08/2025 Patient Outreach [facility] [address] [place] [address] Pavithra Álvarez MD Pre-visit Planning (SDOH screening [...] 3-dose series) 2022 COVID-19 Vaccine (1 - 2024-2 6 season) 2025 SDOH Screening 05/08/2026 05/08/2025 Tobacco [...] 3:02 PM EDT) Syphilis Screen Nonreactive Nonreactive [facility] Blood Venous blood specimen / Unknown 05/18/2025 3:02 PM EDT 05/18/2025 4:03 PM EDT Ramya Coronado [facility] BLOOD ORDERABLES Final Resul t [facility] [address] [place] [phone] * Vitamin D, 25-Hydroxy, Total, Immunoassay (05/18/2025 3:02 PM EDT) Vitamin D 25-OH Total 58.0 >30 ng/mL [facility] Comment: Health Based Reference Values*< 20 ng/mL [id number] ng/mL Insufficient> 30 ng/mL Sufficient*Shell AMATO. N [...] BLOOD ORDERABLES Final Result Performing Organization Address [facility] Co de Phone Number [facility] [address] [place] [phone] * TSH with Reflex to Free T4 (05/18/2025 3:02 PM EDT) TSH reflex Free T4 1.71 0.32 - 4.0 uIU/mL [facility] Blood Venous blood specimen / Unknown 05/18/2025 3:02 PM EDT 05/18/2025 4:03 PM EDT us Pavithra Kinney MD LAB BLOOD ORDERABLES Final Result Performing Organization Address [facility] Co de Phone Number [facility] [address] [place] [phone] * Hepatitis C Antibody with Reflex to HCV, RNA, Quantitative, Real-Time PCR (05/18/2025 3:02 PM EDT) Hepatitis C Antibody Nonreactive Nonreactive [facility] Comment:Antibodies to HCV no t detected; does not exclude early acuteHCV infection. Blood Venous blood specimen / Unknown 05/18/2025 3:02 PM EDT 05/18/2025 4:03 PM EDT Ramya Coronado [facility] BLOOD ORDERABLES Final Resul t Performing Organization Address [facility] Co de Phone Number [facility] [address] [place] [phone] * Hepatitis B surface antigen, EIA (05/18/2025 3:02 PM EDT) Hepatitis B Surface Ag Negative Negative [facility] Blood Venous blood specimen / Unknown 05/18/2025 3:02 PM EDT 05/18/2025 4:03 PM EDT us Ramya Coronado [facility] BLOOD ORDERABLES Final Resul t Performing Organization Address [facility] Co de Phone Number [facility] [address] [place] [phone] * Hepatitis B Core Antibody, Total (05/18/2025 3:02 PM EDT) Pathologist [facility] Hepatitis B Core Antibody Nonreactive Nonreactive [facility] Blood Venous blood specimen / Unknown 05/18/2025 3:02 PM EDT 05/18/2025 4:03 PM EDT Ramya Coronado [facility] BLOOD ORDERABLES Final Resul t Performing Organization Address [facility] de Phone Number [facility] [address] [place] [phone] * HIV-1/2 Antigen and Antibodies, Fourth Generation, with Reflexes (05/18/2025 3:02 PM EDT) HIV AB/AG Nonreactive Nonreactive [facility] Comment:HIV-1 p24 Ag and/or HIV-1/HIV-2 Ab not detected.A test result that is nonreactive does not exclude thepossibility of exposure to or infection with HIV-1 and/orHIV-2. Nonreactive results in this assay for individualswith prior exposure to HIV-1 and/or HIV-2 may be due toantigen and antibody levels that are below the limit ofdetection of this assay.The iCoolhuntnidscout HIV Ag/Ab Combo assay result andsupplemental assay results should be interpreted inconjunction with the patient's clinical presentation,history and other laboratory results. If the results areinconsistent with clinical evidence, additional testing issuggested to confirm the result. Blood Venous blood specimen / Unknown 05/18/2025 3:02 PM EDT 05/18/2025 4:03 PM EDT us Ramya Coronado [facility] BLOOD ORDERABLES Final Resul t Performing Organization Address [facility] Co de Phone Number [facility] [address] [place] [phone] * Hepatitis B Surface Antibody, Qualitative (05/18/2025 3:02 PM EDT) ~Hepatitis B Surface Antibody NONREACTIVE Nonreactive [facility] Comment:Nonreactive: < 8.00 mIU/mL Blood Venous blood specimen / Unknown 05/18/2025 3:02 PM EDT 05/18/2025 4:03 PM EDT Ramya Coronado [facility] BLOOD ORDERABLES Final Resul t Performing Organization Address [facility] Co de Phone Number [facility] [address] [place] [phone] * Hemoglobin A1c (05/18/2025 3:02 PM EDT) Hemoglobin A1c 5.1 <6.0 % [facility] Comment:Hemoglobin A1C Refer ence Range Adults: 4.8 - 6.0 % Non diabetic: < 6.0 % Goal: < 7.0 %Additional Action Suggested: > 8.0 %Note: Hemoglobin A1c results are invalid for patients with abnormal amounts of HbF. Blood transfusions may impact the HbA1c concentration in the patient sample. Estimated Average Glucose 100 mg/dL [facility] Comment:eAG = Estimated ave rage glucose which is %A1C expressed asaverage glucose, using the formula of the [id number] Glucose study (ADAG), Diabetes Care, Vol.31,#8,Mar. 2007 Blood Venous blood specimen / Unknown 05/18/2025 3:02 PM EDT 05/18/2025 4:00 PM EDT us Pavithra Kinney MD LAB BLOOD ORDERABLES Final Result Performing Organization Address City/[facility]/ZIP Co de Phone Number [facility] [address] [place] [phone] * (ABNORMAL) Hepatic Function Panel (05/18/2025 3:02 PM EDT) Bilirubin, Total 1.1(H) 0.0 - 1.0 mg/dL [facility] Bilirubin, Direct 0.4 0.0 - 0.5 mg/dL [facility] Aspartate Amino Transferase 33 5 - 37 U/L [facility] Alanine Aminotransferase 22 0 - 40 U/L [facility] Total Protein 7.5 6.5 - 8.0 g/dL [facility] Albumin Level 5.2(H) 3.5 - 5.0 g/dL [facility] Alkaline Phosphatase 70 39 - 117 U/L [facility] Blood Venous blood specimen / Unknown 05/18/2025 3:02 PM EDT 05/18/2025 4:03 PM EDT us Pavithra Kinney MD LAB BLOOD ORDERABLES Final Result Performing Organization Address City/[facility]/ZIP Co de Phone Number [facility] [address] [place] [phone] * (ABNORMAL) Lipid Panel, Standard (05/18/2025 3:02 PM EDT) Triglycerides 87 <150 mg/dL [facility] Comment:Desirable Triglyceri de: less than 150 mg/dLBorderline High Triglyceride 150-199 mg/dLHigh Triglyceride: 200-499 mg/dLVery High Triglyceride: greater than or equal to 5OO mg/dL Cholesterol 114 <200 mg/dL [facility] Comment:Desirable Cholestero l: less than 200 mg/dLBorderline High Cholesterol: 200-239 mg/dLHigh Cholesterol: greater than 239 mg/dL LDL Cholesterol Calculated 64 <100 mg/dL [facility] Comment:Desirable LDL: less than 100 mg/dLNear Optimal/Above Optimal LDL: 110- 129 mg/dLBorderline High LDL: 130-159 mg/dLHigh LDL: 160-189 mg/dLVery High LDL: greater than or equal to 190 mg/dL HDL Cholesterol 33(L) >40 mg/dL [facility] Comment:Desirable HDL: great er than 40 mg/dL Note: This HDL assay may give artificially low results in patients with liver disease. Blood Venous blood specimen / Unknown 05/18/2025 3:02 PM EDT 05/18/2025 4:03 PM EDT us Pavithra Kinney MD LAB BLOOD ORDERABLES Final Result [facility] [address] [place] [phone] * (ABNORMAL) Basic Metabolic Panel (05/18/2025 3:02 PM EDT) Sodium 140 135 - 145 mmol/L [facility] Potassium 4.0 3.3 - 5.1 mmol/L [facility] Chloride 105 96 - 108 mmol/L [facility] Carbon Dioxide 28 22 - 29 mmol/L [facility] Anion Gap 11(L) 12 - 20 [facility] Urea Nitrogen (BUN) 15 9 - 16 mg/dL [facility] Creatinine, Serum 1.06 0.5 - 1.4 mg/dL [facility] Estimated Glomerular Filt Rate >60 [facility] Comment:Chronic Kidney Disea se: Estimated GFR < 60 mL/min/1.44k6Obphnm Kidney Disease: Estimated GFR < 15 mL/min/1.73m2 Glucose 95 60 - 115 mg/dL [facility] Calcium 9.6 8.4 - 10.2 mg/dL [facility] Blood Venous blood specimen / Unknown 05/18/2025 3:02 PM EDT 05/18/2025 4:03 PM EDT [facility] BLOOD ORDERABLES Final Resul t [facility] [address] [place] [phone] from Last 3 Months Insurance [facility] 2 Care Teams Occupational Therapist Assistant Relationship Specialty Start Date End Date Pavithra Álvarez MD [address] [place] [address] PCP - General Internal Medicine 05/18/25
== END 2025-07-29 14:19 | disposition home or self-care (01) ==
LOC: HO.HSM 11:42
PROVIDERS: PCP Nurse Practitioner Primary Care; Visit Provider Psychiatry & Neurology Neurology
DX: G40.909 Epilepsy, unspecified, not intractable, without status epilepticus (principal)
CPT/HCPCS: 99214

== ENCOUNTER → 2025-07-29 11:41 | Outpatient (BNVA) | payer OTHER, SELFPAY | PROVIDERS: PCP Nurse Practitioner Primary Care; Visit Provider Psychiatry & Neurology Neurology | DX: G40.909 Epilepsy, unspecified, not intractable, without status epilepticus (principal); Z79.899 Other long term (current) drug therapy | CPT/HCPCS: 99212 ==

== ENCOUNTER 2025-07-30 08:36 | Outpatient (REF) | payer OTHER, SELFPAY ==
--- NOTE | 2025-07-30 09:14 | EEG_ITS ---
History: H/O epilepsy since childhood- entire life he has had 4 or 5 tonic-clonic seizures and no partial seizures - last seizure was in 2022 after missing his medications - seizures may have been brought on by sleep deprivation, no aura and passes out suddenly and goes into a generalized convulsion few times tongue biting but usually no incontinence- MRI pending. Medication: levetiracetam Technical Description Photic Stimulation: completed Hyperventilation: performed - good effort Behavioral State: pleasant State of Consciousness: awake with light sleep Skull Defect: no Sedation: no Handedness: right Duration: 35 mins 36 secs Paranormal Investigator Comments: Last Meal: 07/20/25 7 am Time / date of last symptom: last event 2022 - exact date unknown Description: The waking background activity consists of a moderate voltage 11 hertz posterior alpha frequency intermixed with moderate voltage beta frequencies. Drowsiness is characterized by diffuse theta slowing. During sleep symmetrical frontocentral sleep spindles and vertex sharp transient develop over both hemispheres. Occasional isolated sharp waves are seen in the frontotemporal distribution, more frequently from the left. Photic stimulation is without activation. Hyperventilation does not produce any change in the background activity. Impression: This EEG is considered mildly abnormal due to isolated sharp transient seen from the frontotemporal distribution left greater than right suggestive of some elements of focal cerebral irritability. Clinical correlation is suggested MTDD
== END 2025-07-30 08:37 | disposition home or self-care (01) ==
LOC: HO.NEURO 08:36
PROVIDERS: PCP Nurse Practitioner Primary Care; Visit Provider Psychiatry & Neurology Neurology
DX: G40.909 Epilepsy, unspecified, not intractable, without status epilepticus (principal)
CPT/HCPCS: 95819

== ENCOUNTER → 2025-07-30 09:14 | Outpatient (BNV) | payer OTHER, SELFPAY | PROVIDERS: PCP Nurse Practitioner Primary Care; Visit Provider Psychiatry & Neurology Neurology | DX: G40.909 Epilepsy, unspecified, not intractable, without status epilepticus (principal) | CPT/HCPCS: 95819 ==